=== PATIENT | female | born 1955 | race Caucasian/White ===

== ENCOUNTER → 2017-05-26 10:09 | Outpatient (CLI) | payer OTHER | END | disposition home or self-care (01) | LOC: D.CT 05-23 16:30 | DX: I72.8 Aneurysm of other specified arteries (principal) ==

== ENCOUNTER → 2017-06-12 07:34 | Outpatient (CLI) | payer OTHER ==
[~2017-06-12 07:34] MED LIST: FIBERCON625 MG PO; MULTIPLE VITAMI1 TA1 PO; SYNTHROID25 MCG PO; TEGRETOL200 MG PO; VITAMIN D31000 UNIT PO
[2017-07-14 06:32] VITALS: BMI 22.0
== END | disposition home or self-care (01) ==
LOC: D.MRI 07:34
DX: K76.9 Liver disease, unspecified (principal)

== ENCOUNTER 2017-07-14 05:39 | Outpatient (CLI) | payer OTHER ==
[~2017-07-14] VITALS: Ht 162.6 cm; Wt 58.2 kg
--- NOTE | ~2017-07-14 | HP ---
PATIENT: INNA RUDD MEDICAL RECORD: [id number] ACCOUNT: [id number] LOCATION:[facility] : 59 ADMISSION DATE: 07/14/17 HISTORY AND PHYSICAL EXAMINATION CHIEF COMPLAINT: Splenic artery aneurysm. HISTORY: The patient was found to have a splenic artery aneurysm. She underwent a CTA of the abdomen. She was actually found to 2 splenic artery aneurysms, one which likely is amenable to embolization and the other one which likely is not going to require intervention at this time. However, I would certainly leave that up to the interventional radiologist to determine whether that should take place or not. The patient was referred to me by Dr. Hawkins. Splenic artery aneurysm was an incidental finding on a CT scan. The risks, possible complications, and alternatives to the procedure were discussed with the patient. She elects to proceed. The patient was also found to have a complex cyst of the right kidney and has been evaluated by Dr. Chanel. She has never had a complete colonoscopy. I have advised her to have one. She was found to have a liver lesion as well and she has undergone further radiographic evaluation of the liver lesion, that was found to be benign. This was from an MRI of the abdomen with and without contrast, which revealed no suspicious liver lesions. There were 2 lesions, one in the right lobe and one in the left lobe, and they demonstrated enhancement characteristics, consistent with hemangiomas. There was also a tiny cyst in the right lobe of the liver. ALLERGIES: CAT DANDER, HOUSE DUST, MITES, POLLEN EXTRACTS, RAGWEED POLLEN WELL TYLENOL, AND CODEINE NO. 3. CURRENT MEDICINES: The last list of medicines I have for the patient includes levothyroxine as well as carbinoxamine. FAMILY HISTORY: Father had Alzheimer's disease. Maternal grandmother had malignant tumor of the colon. Maternal grandfather had cerebrovascular accident. SOCIAL HISTORY: Retired. Never smoked. PAST MEDICAL AND SURGICAL HISTORY: Knee arthroscopy, ovarian cyst surgery, tonsillectomy and adenoidectomy. PHYSICAL EXAMINATION: GENERAL: The patient does not appear acutely ill. She does not appear chronically ill. VITAL SIGNS: Reviewed. EARS: External ears appear normal. EYES: Extraocular movements are intact. NECK: Trachea is midline. CHEST: No intercostal retractions. PULMONARY: Nonlabored. No stridor. ABDOMEN: Nontender. EXTREMITIES: No peripheral cyanosis. IMPRESSION: Splenic artery aneurysm. HISTORY AND PHYSICAL [id number] INNA RUDD PLAN: Interventional radiology splenic artery aneurysm repair/exclusion/embolization, etc. TRANSINT:[id number] Voice Confirmation ID: [id number] DOCUMENT ID: [id number] CC: Lilly Dailey MD [phone] EMI GAMINO MD at 1042 CC: GUILHERME HAWKINS MD and Lilly Dailey MD [phone] DICTATION DATE: 07/12/17 1726 [employer] REG[employer]AR: 07/12/17 1833 PRE [facility] [address] [place] [address]
--- NOTE | ~2017-07-14 | HEMODYNAMI ---
PATIENT:INNA RUDD MEDICAL RECORD: [id number] : 59 LOCATION:[facility] ADMISSION DATE: 07/14/17 Generatedon:07/14/20179:40 Patient name: INNA RUDD Patient #: [id number] SSN: : 1955 Date of study: 07/14/2017 Page: Of Hemodynamic Procedure Report Patient Data Patient Demographics Procedure consent was obtained First Name: INNA Gender: Female Last Name: TOBIN : 1955 Middle Initial: H Age: 62 year(s) Patient #: [id number] Race: Unknown Additional ID: [id number] Contact details Address: [address] State: [place] City: [facility] Zip code: [address] Past Medical History Allergies Allergen Reaction Date Comments Reported Acetaminophen 07/14/2017 Codeine 07/14/2017 Admission Admission Data Admission Date: 07/14/2017 Admission Time: 5:39 Procedure Procedure Types Cath Procedure Peripheral Cath Diagnostic Procedure Abd/Extremity Visceral/Mesenteric Procedure Description Procedure Date Procedure Date: 07/14/2017 Procedure Start Time: 8:53 Procedure Staff Name Function Dalia Guerrero RT Monitor Kelvin Willingham RT Scrub Usman Ramos MD Performing Physician Aarti Calle RN Nurse Melina Vogt RN Nurse Procedure Data Cath Procedure Fluoroscopy Diagnostic fluoroscopy Total fluoroscopy Time: 6.7 time: 6.7 min min Diagnostic fluoroscopy Total fluoroscopy dose: 143 dose: 143 mGy mGy Contrast Material Contrast Material Type Amount (ml) Isovue 300 60 Entry Location Entry Primary Successful Side Size Upsize Upsize Entry Closure Succes sful Closure Location (Fr) 1 (Fr) 2 (Fr) Remarks Device Remarks Femoral Right 5 Fr artery Femoral Exoseal artery Diagnostic catheters Device Type Used For End Catheter Placement Merit Impress 5Fr SIM 1 Catheter ([id number]) Procedure Medications Medication Administration Route Dosage Lidocaine 1% added to field 20 Heparin Flush Bag added to field 3 bags (1000units/500ml NS) Versed I.V. 2 mg Fentanyl I.V. 100 mcg Fentanyl I.V. 50 mcg Versed I.V. 1 mg Oxygen NC 3 l/min Versed I.V. 1 mg Fentanyl I.V. 50 mcg Versed I.V. 1 mg Fentanyl I.V. 50 mcg Hemodynamics Rest Heart Rate: 87 (bpm) Snapshots Pre Cath Intra NCS Post Cath Vital Signs Time Heart Resp SPO2 etCO2 NIBP (mmHg) Rhythm Pain Sedation Rate (ipm) (%) (mmHg) Status Level (bpm) 8:24:21 87 4 98 34.8 136/84(110) NSR 0 (11) 10(A) , No pain 8:28:29 86 13 98 28.8 137/82(115) NSR 0 (11) 10(A) , No pain 8:33:16 81 9 99 29.5 138/77(103) NSR 0 (11) 10(A) , No pain 8:37:22 88 13 98 34.8 135/89(110) NSR 0 (11) 10(A) , No pain 8:41:34 84 8 99 23.4 139/75(110) NSR 0 (11) 10(A) , No pain 8:45:48 80 7 100 29.5 131/71(105) NSR 0 (11) 10(A) , No pain 8:49:56 81 5 98 37.9 132/80(108) NSR 0 (11) 10(A) , No pain 8:54:06 77 5 98 43.2 139/77(103) NSR 0 (11) 9(A) , No pain 8:58:18 71 4 96 44.7 110/70(102) NSR 0 (11) 8(A) , No pain 9:02:23 81 5 98 50 124/62(89) NSR 0 (11) 8(A) , No pain 9:06:31 83 1 99 40.2 122/70(91) NSR 0 (11) 8(A) , No pain 9:10:43 74 7 95 40.9 102/57(80) NSR 0 (11) 8(A) , No pain 9:14:45 74 6 96 43.2 103/61(82) NSR 0 (11) 8(A) , No pain 9:18:47 75 6 98 42.4 116/70(81) NSR 0 (11) 8(A) , No pain 9:22:52 81 7 98 44.7 121/65(92) NSR 0 (11) 10(A) , No pain 9:27:02 76 9 97 16.6 103/67(79) NSR 0 (11) 10(A) , No pain 9:31:08 86 13 98 26.5 105/57(92) NSR 0 (11) 10(A) , No pain 9:35:12 77 10 95 39.4 119/68(90) NSR 0 (11) 10(A) , No pain Medications Time Medication Route Dose Verified Delivered Reason Notes Effect iveness by by 8:33:28 Lidocaine 1% added 20ml Usman Mary to vial Rachel barahona MD, MD 8:33:52 Heparin Flush added 3 Usman Mary Bag to bags Rachel Ramos (1000units/500ml field MD [place] NS) 8:50:10 Versed I.V. 2 mg Usman Aarti for Rachel Luc RN sedation 8:50:22 Fentanyl I.V. 100 Usman Aarti for mcg Racheltravis Chir RN sedation 8:54:04 Fentanyl I.V. 50 Usman Aarti for mcg Rachel Luc RN sedation 8:54:13 Versed I.V. 1 mg Usman Aarti for Rachel Luc RN sedation 8:56:36 Oxygen NC 3 Aarti Aarti used for l/min Luc Luc mechanical intern RN 9:08:11 Versed I.V. 1 mg Aarti Aarti for Luc Luc RN sedation RN 9:08:17 Fentanyl I.V. 50 Aarti Aarti for mcg Luc Luc RN sedation RN 9:21:12 Versed I.V. 1 mg Aarti Aarti for Luc Luc RN sedation RN 9:21:19 Fentanyl I.V. 50 Aarti Aarti for mcg Luc Luc RN sedation business solution analyst Log Time Note 8:14:13 Use device set IR Diagnostic 8:15:08 Time tracking: Regular hours 8:15:16 Patient received from Outpatients to IR Alert and oriented. Tansferred to table in Supine position. 8:16:01 Plan of Care:Hemodynamics will remain stable., Cardiac rhythm will remain stable., Comfort level will be maintained., Respiratory function will remain adequate., Patient/ family verbilizes understanding of procedure., Procedure tolerated without complication., Recovers from procedure without complications.. 8:16:06 Signed procedure consent form obtained from patient. 8:16:11 H&P Date Dictated: 07/14/2017 Within 30 days and on chart.. 8:17:27 Pre-procedure instructions explained to patient. 8:17:28 Pre-op teaching completed and patient verbalized understanding. 8:17:30 Family in waiting room. 8:17:33 Patient NPO since Midnight. 8:17:41 8:17:44 Patient allergic to Codeine 8:17:50 Is the patient allergic to Iodine/contrast media? No. 8:17:53 Is patient on blood thinner?No 8:18:03 Patient diabetic? No. 8:18:06 8:18:35 ----Pre-sedation anethsthesia assessment.---- 8:18:38 Previous problem with sedation/anesthesia? No ? 8:18:43 Snore? Yes 8:18:45 Sleep apnea? No 8:18:47 Deviated septum? No 8:18:49 Opens mouth fully? Yes 8:18:51 Sticks out tongue? Yes 8:18:54 Airway obstruction? No ? 8:18:58 Dentures? No ? 8:19:01 8:23:12 ECG and BP/O2 sat monitors applied to patient. 8:23:15 Vital chart was started 8:23:19 Baseline sample Acquired. 8:23:21 Full Disclosure recording started 8:23:22 8:23:35 Micropuncture VSI 4FR kit opened to sterile field. 8:23:36 BENTSON 145cm wire ([id number]) opened to sterile field. 8:23:37 SHEATH 5FR [place] (AKE711) opened to sterile field. 8:23:38 Sterile Angiographic Pack opened to sterile field. 8:23:40 Bag Decanter (2002S) opened to sterile field. 8:23:41 ACIST Manifold (52889) opened to sterile field. 8:23:42 ACIST Hand Control (82260) opened to sterile field. 8:23:43 ACIST Syringe (70831) opened to sterile field. 8:23:52 A Imaging3 Impress 5Fr SIM 1 Catheter ([id number]) was advanced over the wire and used for . 8:32:12 Pre procedure: right dorsailis pedis pulse 2+ Normal; easily identifiable; not easily obliterated 8:32:17 Pre procedure: right posterior tibial pulse Doppler 8:32:28 IV patent on arrival in right wrist with D5/.45%NaCl at O. 8:32:36 Right groin area was prepped with chlora-prep and draped in sterile fashion 8:33:28 Lidocaine 1% 20ml vial added to field was administered by Usman Ramos MD; ; 8:33:52 Heparin Flush Bag (1000units/500ml NS) 3 bags added to field was administered by Usman Ramos MD; ; 8:41:05 GLIDE WIRE ANGLE 180cm (JF4361) opened to sterile field. 8:47:41 Physician arrived 8:48:56 --------ALL STOP TIME OUT------ 8:48:57 Final Timeout: patient, procedure, and site verified with staff and physician. All members of the team are in agreement. 8:50:10 Versed 2 mg I.V. was administered by Aarti Calle RN; for sedation; 8:50:22 Fentanyl 100 mcg I.V. was administered by Aarti Calle RN; for sedation; 8:52:40 Procedure started. 8:53:14 Local anesthetic to right femoral artery with Lidocaine 1% by Usman Ramos MD.INITIAL ACCESS ONLY 8:53:16 Arterial access obtained using ultrasound guidance. 8:54:04 Fentanyl 50 mcg I.V. was administered by Aarti Calle RN; for sedation; 8:54:13 Versed 1 mg I.V. was administered by Aarti Calle RN; for sedation; 8:55:22 A 5 Fr sheath was inserted into the Right Femoral artery 8:56:36 Oxygen 3 l/min NC was administered by Aarti Calle RN; used for procedure; 8:58:50 TRANSEND STEERABLE wire ([id number]) opened to sterile field. 8:58:50 RENEGADE STAIGHT 150CM microcatheter ([id number]) opened to sterile field. 8:58:51 COPILOT Valve Control (5421436) opened to sterile field. 9:03:59 COIL Interlock 14 X 30 ([id number]) opened to sterile field. 9:06:13 COIL Interlock 14 X 30 ([id number]) opened to sterile field. 9:07:42 COIL Interlock 14 X 30 ([id number]) opened to sterile field. 9:08:11 Versed 1 mg I.V. was administered by Aarti Calle RN; for sedation; 9:08:17 Fentanyl 50 mcg I.V. was administered by Aarti Calle RN; for sedation; 9:09:22 COIL Interlock 12 X 30 ([id number]) opened to sterile field. 9:10:27 COIL Interlock 12 X 20 ([id number]) opened to sterile field. 9:12:52 COIL Micronester 8MM (I62640) opened to sterile field. 9:13:53 COIL Micronester 8MM (X93002) opened to sterile field. 9:15:42 COIL Interlock 12 X 30 ([id number]) opened to sterile field. 9:21:12 Versed 1 mg I.V. was administered by Aarti Calle RN; for sedation; 9:21:19 Fentanyl 50 mcg I.V. was administered by Aarti Calle RN; for sedation; 9:24:25 EXOSEAL 5Fr (EX500) opened to sterile field. 9::51 Sheath removed intact; hemostasis achieved with Exoseal to the Femoral artery. 9:24:51 A sheath was inserted into the Femoral artery 9:25:00 Procedure ended.(Physican Out) 9:28:00 Fluoroscopy time 06.70 minutes. 9:28:07 Fluoroscopy dose: 143 mGy 9:28:07 Flurop Dose total: 143 9:28:16 Contrast amount:Isovue 300 60ml. 9:28:19 Procedure and supply charges have been captured, reviewed, submitted and are correct. 9:31:01 Post Procedure Pulses reassessed and unchanged 9::09 Report given to Outpatients. 9:37:25 Vital chart was stopped 9:37:30 Full Disclosure recording stopped Device Usage Item Name Manufacture Quantity Catalog Hospital Part Current Minima l Lot# / Number Charge Number Stock Stock Serial# Code Micropuncture VSI VASCULAR 1 7266V [id number] 394207 5 VSI 4FR kit SOLUTIONS BENTSON 145cm Cook Medical 1 [id number] 753457 440689 5 0854267 wire (H35048) SHEATH 5FR Terumo 1 ZDQ354 779833 456921 546787 40 [place] (XMD567) Sterile Cardinal 1 [id number] 210424 278263 5 Angiographic Health Pack Bag Decanter Microtek 1 2001S 148383 90356 468839 5 (2001S) Medical Inc. ACIST Acist 1 17966 165925 100000 537510 5 Manifold Medical (11104) Systems Inc ACIST Hand Acist 1 54240 339805 118561 747337 5 Control Medical (41756) Systems Inc ACIST Syringe Acist 1 65990 139176 779824 482772 20 (74013) Medical Systems Inc Merit Impress Merit 1 [id number] 731855 216921 087234 5 5Fr SIM 1 Medical Catheter (64048UGO7) GLIDE WIRE Terumo 1 KE3061 082951 695780 532384 5 ANGLE 180cm (TX9178) RENEGADE [place] 1 [id number] 860368 058596 5 STAIGHT 150CM Scientific microcatheter ([id number]) TRANSEND [place] 1 [id number] 696157 846924 5 STEERABLE Scientific wire ([id number]) COPILOT Valve Shirley 1 4230063 428246 550145 023602 5 Control Vascular (0367991) COIL [place]unnel[place] 3 [id number] 797448 627272 069753 5 [id number] Interlock 14 Scientific 76826948 X 30 72185092 ([id number]) COIL [place]unnelton 2 [id number] 323088 298074 889226 5 [id number] Interlock 12 Scientific 36196520 X 30 ([id number]) COIL [place] 1 [id number] 812183 462267 993872 5 [id number] Interlock 12 Scientific X 20 ([id number]) COIL [facility] 2 E35863 442572 673049 5 [id number] Micronester 6450522 8MM (M37503) EXOSEAL 5Fr Cardinal 1 EX500 585769 687058 841773 10 [id number] (EX500) Health Signature Audit [place] Stage Time Signature Unsigned Intra-Procedure 07/14/2017 Dalia Warren [facility] RT 9:37:20 AM RT(R) (R) (CV) 07/14/2017 9:38:40 AM Intra-Procedure 07/14/2017 Dalia Guerrero 9:40:11 AM RT(R) Signatures Monitor : Dalia Guerrero RT Signature : Date : Time : [address] [place] [address]
[2017-07-14 06:06] LABS: BASOPHILS 0.4 % (0-2); EOSINOPHILS 3.8 % (0-7); HEMATOCRIT 38.8 % (36.0-48.0); IMMATURE GRANULOCYTES 0.2 % (0-5); LYMPHOCYTES 36.3 % (15-50); MCHC 33.5 g/dL (31.0-37.0); MCV 92.6 fL (80.0-100.0); MONOCYTES 10.8 % (2-11); NEUTROPHILS 48.5 % (40-80); PLATELET COUNT 159 10x3/uL (130-400); RBC 4.19 10x6/uL (4.00-5.40); RDW 13.9 % (11.5-14.5); WBC 4.7 10x3/uL (4.8-10.8)
[2017-07-14] MEDS ORDERED: SYNTHROID25 MCG PO (06:23)
[2017-07-14] MEDS ORDERED: TEGRETOL200 MG PO (06:24)
[2017-07-14] MEDS ORDERED: MULTIPLE VITAMI1 TA1 PO (06:24)
[2017-07-14] MEDS ORDERED: FIBERCON625 MG PO (06:25)
[2017-07-14] MEDS ORDERED: VITAMIN D31000 UNIT PO (06:25)
[2017-07-14 06:32] VITALS: BP 133/74; Ht 162.6 cm; Wt 58.2 kg
[2017-07-14 06:38] LABS: CALCIUM 8.4 mg/dL (8.5-10.1); CARBON DIOXIDE 28.6 mmol/L (21.0-32.0); CREATININE - SERUM 0.7 mg/dL (0.6-1.3); GLUCOSE 91 mg/dL (74-106); UREA NITROGEN 10 mg/dL (7-18); eGFR NON AFRICAN AMERICAN 90 mL/min (90-120)
[2017-07-14 06:49] LABS: APTT 28.7 SECONDS (22.8-39.4); INR 1.04 (0.85-1.17); PROTIME 13.2 SECONDS (11.6-15.0)
[2017-07-14 07:06] LABS: CALC OSMOLALITY 289 mosm/kg (275-300); CHLORIDE - SERUM 107 mmol/L (98-107); POTASSIUM - SERUM 3.4 mmol/L (3.5-5.1); SODIUM 146 mmol/L (136-145)
== END 2017-07-14 13:35 | disposition home or self-care (01) ==
LOC: D.SP 05:39
PROVIDERS: Radiology Diagnostic Radiology
DX: I72.8 Aneurysm of other specified arteries (principal); K76.9 Liver disease, unspecified; N28.1 Cyst of kidney, acquired; Z01.812 Encounter for preprocedural laboratory examination